=== PATIENT | male | born 1945 | race Caucasian/White ===

== ENCOUNTER 2023-06-21 08:06 | Day surgery (SDC) | payer MEDICARE, BC, SELFPAY ==
[2023-06-07 08:06] VITALS: BMI 28.3
[2023-06-21] VITALS (10 sets, daily range): BP systolic 113–138; BP diastolic 62–73
[2023-06-21 11:46] LABS: ACT-LR - POC 290 Seconds (116-155)
[2023-06-21 12:05] LABS: ACT-LR - POC 276 Seconds (116-155)
[2023-06-21 12:26] LABS: ACT-LR - POC 353 Seconds (116-155)
--- NOTE | 2023-06-21 13:47 | ITS.CL.ABL ---
Mental Health Director - Ablation
Ablation
Procedure Report:
ELECTROPHYSIOLOGIC STUDY AND POSSIBLE ABLATION
DATE: June 21, 2023
Primary Care Provider: Dr Garry Sweet
INDICATION:
Symptomatic Atrial Fibrillation.
Persistent
HISTORY: See H and P.
Symptomatic AF, poorly controlled with attempted medical therapy.
He underwent PVI March 16, 2016. He has maintained sinus rhythm until 2022 when atrial fibrillation was noted to have recurred.
Atrial fibrillation recurrences have been associated with left ventricular systolic dysfunction. Echocardiogram March 17, 2023 finds LVEF of 40 to 45% with global hypokinesis. There is mild to moderate mitral regurgitation and markedly dilated
left atrium, compared to prior echocardiogram from October 2019, LVEF was previously estimated at 64%. He subsequently underwent electrical cardioversion April 05, 2023 restoring sinus rhythm and then recurred with symptomatic atrial fibrillation.
HAS-BLED: 1
Age
CHADSVASc:
CHF, NYHA Class 2, HFmrEF
HTN
Age
PRESENTING RHYTHM: AF
HISTORY: See H and P.
Symptomatic AF, poorly controlled with attempted medical therapy.
ANTICOAGULATION: Eliquis
'TIME-OUT': called and confirmed.
SEDATION/ANESTHESIA: provided via the anesthesia department using general anesthesia.
PROCEDURE:
Ultrasound Guidance performed by wi was utilized for femoral venous Vascular Access b/l.
A decapolar CS catheter was placed within the CS for mapping and pacing.
The intracardiac ultrasound catheter was positioned in the RA for continuous intracardiac ultrasound imaging.
Heparin bolus and infusion to target ACT at 300 -350 seconds was administered. Transseptal puncture was performed. This entailed advancing a sheath with dilator into the superior vena cava and withdrawing both (monitoring intracardiac ultrasound,
fluoroscopy and tip pressure) with the tip oriented toward the atrial septum. The fossa ovalis was engaged (indicated by sudden displacement of the sheath tip as well as tenting of the fossa seen on intracardiac ultrasound). Left atrial access
required a pass with the Brocken[place]rough needle extended. Left atrial catheter position was confirmed by pressure monitoring as well as fluoroscopy. The sheath was advanced over the dilator and positioned in the left atrium. The multipolar mapping
catheter was initially positioned through the transseptal sheath for high density mapping. The ablation catheter was then substituted.
A 3-D map was created using [employer]. A 3-D reconstructed CT image was compared to the 3-D [employer] map to assist in anatomic evaluation, mapping and ablation.
Cardioversion restoring sinus rhythm was performed followed by electroanatomical mapping using [employer] multipolar mapping catheter finds electrically isolated left superior pulmonary vein and right superior pulmonary vein. There is reconnection
at the left inferior pulmonary vein towards the inferior posterior quadrant and reconnection at the sofía between the right superior and right inferior pulmonary veins into the right inferior pulmonary vein. Given recurrence development of
persistent atrial fibrillation after his initial ablation 7 years ago, additional ablation lesion set is planned targeting the left atrial posterior wall. 4 mm tip contact sensing irrigated tip catheter was used to electrically isolate the left
inferior pulmonary vein and the right inferior pulmonary vein. Additional ablation was performed at the posterior wall of the left atrium and at the sofía between the right sided veins to electrically isolate the posterior wall.
An esophageal temperature probe was positioned at the level of the mid LA to delineate the course of the esophagus as well as monitor for any significant temperature increases during RF delivery. The temperature probe was repositioned to best
correlate to the level of each ablation delivery. RF would be repositioned and or discontinued with significant temperature increase (0.2 �C or more) to reduce the risk of esophageal injury. Maximal increase in luminal esophageal temperature
(including latency) at any RF ablation location is < 1 �C and the maximal temperature recorded is 36.4 �C
Prior to energy delivery at the sofía between the right sided pulmonary veins and on the septal aspect of the right sided pulmonary veins high output pacing was performed at every ablation site to assess for proximity to the phrenic nerve. There
was no phrenic nerve capture preceding any RF application.
I.C.E. :
Pre-Ablation Post-Ablation
LVEF: 30-40 % 30-40 %
WMA: global global
Pericardial effusion: none none
Vascade was used for hemostasis at the venous puncture sites.
COMPLICATIONS:
None
SUMMARY:
- Mapping and ablation to isolate the PVs
- Additional AF ablation set after PVI.
- 3-D Electroanatomical Mapping
- Intracardiac Ultrasound
Post ablation, I discussed today's findings and results with the patient's .
RECOMMENDATIONS:
- Observe in monitored bed.
- Maintain oral anticoagulation.
- PPI X 30 days
- Office visit with me in 3 months.
Copy to: Dr Garry Sweet
--- NOTE | 2023-06-21 15:52 | W.PN.UPDATE ---
Update Note
Progress Note Update
77 yo WM s/p PVI (same day). He feels good, no cp, sob, preeti clears, voiding, amb w/o dizziness, b/l groins VASCADE closure, soft. EKG SR 1deg AVB and RBBB, intermittent JR on tele asymptomatic SR restores after a few seconds. He will take his
Eliquis tonight at 7pm at home. He will continue his metoprolol. CPAP compliance was reinforced. Activity restrictions reviewed. He will f/u Dr. Lazaro in 2 mo. He is for d/c home after 330p.
SUMMARY:�
-� Mapping and ablation to isolate the PVs
-� Additional AF ablation set after PVI.�
-� 3-D Electroanatomical Mapping
-� Intracardiac Ultrasound
Post ablation, I� discussed today's findings and results with the patient's .
RECOMMENDATIONS:
- Observe in monitored bed.�
- Maintain oral anticoagulation.
- PPI X 30 days
- Office visit with me in 3 months.
Copy to: Dr Garry Sweet
== END 2023-06-21 16:11 | disposition home or self-care (01) ==
LOC: CATH 08:06
PROVIDERS: ATTENDING PHYSICIAN Internal Medicine Cardiovascular Disease; FAMILY PHYSICIAN Family Medicine
DX: I48.0 Paroxysmal atrial fibrillation (principal); E78.5 Hyperlipidemia, unspecified; I11.0 Hypertensive heart disease with heart failure; I50.20 Unspecified systolic (congestive) heart failure; I43 Cardiomyopathy in diseases classified elsewhere; H40.9 Unspecified glaucoma; N40.1 Benign prostatic hyperplasia with lower urinary tract symptoms; R33.8 Other retention of urine; I34.0 Nonrheumatic mitral (valve) insufficiency; Z79.01 Long term (current) use of anticoagulants; Z87.891 Personal history of nicotine dependence
CPT/HCPCS: C1732; C1894; C1766; C2630; C1892; C1759; 76937; 85347; 93005; 93656; 93657; C1760

== ENCOUNTER → 2023-09-19 07:52 | Day surgery (SDC) | payer MEDICARE, BC, SELFPAY ==
[2023-09-19 09:00] VITALS: BMI 28.8
== END ==
LOC: CATH 07:52
PROVIDERS: ATTENDING PHYSICIAN Internal Medicine Cardiovascular Disease; FAMILY PHYSICIAN Family Medicine; OTHER PHYSICIAN Internal Medicine Cardiovascular Disease
DX: I48.0 Paroxysmal atrial fibrillation (principal); I10 Essential (primary) hypertension; I42.9 Cardiomyopathy, unspecified; I45.10 Unspecified right bundle-branch block; I34.0 Nonrheumatic mitral (valve) insufficiency; G47.33 Obstructive sleep apnea (adult) (pediatric); Z87.891 Personal history of nicotine dependence; Z79.01 Long term (current) use of anticoagulants
CPT/HCPCS: 92960; 93005

== ENCOUNTER → 2024-07-16 09:21 | Outpatient (REF) | payer MEDICARE, BC, SELFPAY | LOC: RAD 09:21 | PROVIDERS: ATTENDING PHYSICIAN Surgery; FAMILY PHYSICIAN Family Medicine | DX: N40.1 Benign prostatic hyperplasia with lower urinary tract symptoms (principal) | CPT/HCPCS: 76770 ==

== ENCOUNTER 2025-02-17 06:28 | Day surgery (SDC) | payer MEDICARE, BC, SELFPAY ==
[2025-02-17] VITALS (11 sets, daily range): BP systolic 107–135; BP diastolic 57–84; BMI 25.7
[2025-02-17] MEDS: NORMOSOL-R/PLASMALYTE-A 1000 IV (09:49)
--- NOTE | 2025-02-17 12:30 | W.IMMPOSTOP ---
Surgical Immed Post Op Note
-
Primary Surgeon: Chikis
Pre-op Diagnosis: BPH w/ SOTO, recurrent urinary retention, massive obstructing intravesical median lobe
Post-op Diagnosis: Same
Procedure Performed: TURP
Anesthesia Type: LMA
Specimen / Cultures: prostate chips/None
Estimated Blood Loss: 3 cc
Drains: 22Fr 3-way catheter (30 cc in balloon)
Complications: None
Operative Findings: Massive intravesical median lobe - resected down to bladder base. Distal prostatic urethral resection down to prostatic capsule. No involvement of bilateral UOs/veru/external urethral sphincter w/n margins of resection.
Excellent hemostasis at conclusion of procedure.
Spouse updated post-op on intraop findings and discharge plan of care (planned 02/18).
[2025-02-17] MEDS: DETROL LA 4 MG PO (13:12)
--- NOTE | 2025-02-17 13:30 | PTCARENOTE ---
Pt received from the PACU via bed.Transport was w/o incident. Pt is AAOx3, HR irreg (known afib), lungs are clear, resp. easy. VSS, Pt is afebrile. Pt with CBI infusing w/o difficulty. Urine is pale pink, no blood clots noted at this time. Pt
instructed on plan of care, along with signs and symptoms to report to nursing regarding his surgery. Pt verbalized understanding of instructions. Call marinelli is within reach.
[2025-02-17] MEDS: FLOMAX 0.4 MG PO (21:49)
[2025-02-17] MEDS: XALATAN OPHTHALMIC SOLUTION 1 DROP BOTH EYES (21:49)
[2025-02-17] MEDS: PROSCAR 5 MG PO (21:49)
[2025-02-18 03:00] VITALS: BP 116/63
[2025-02-18 05:59] VITALS: BMI 25.4
[2025-02-18 07:13] LABS: Hematocrit 33.3 % (39.0-52.0); Hemoglobin 11.3 g/dL (13.0-18.0); Mean Corp Hgb Conc. 33.9 g/dL (33.0-37.0); Mean Corpuscular Volume 98.2 fL (80.0-94.0); Nucleated Red Blood Cells % 0 % (-); Platelet Count 178 10^3/uL (130-400); Red Cell Dist. Width 13.2 % (11.5-14.5)
[2025-02-18 07:34] VITALS: BP 127/96
[2025-02-18 08:01] LABS: Blood Urea Nitrogen 22 mg/dl (9-20); Calcium 9.2 mg/dl (8.4-10.2); Carbon Dioxide 29 mmol/L (22-30); Chloride 103 mmol/L (98-107); Estimated Creatinine Clearance 62 ml/min; Glucose 106 mg/dl (70-99); Potassium 4.1 mmol/L (3.5-5.1); Sodium 136 mmol/L (135-145); eGFR > 60.00
[2025-02-18] MEDS: ZOSYN 50 IV (08:11)
[2025-02-18] MEDS: ZESTRIL 10 MG PO (08:12)
[2025-02-18] MEDS: TOPROL XL 25 MG PO (08:12)
[2025-02-18] MEDS: LIPITOR 20 MG PO (08:12)
[2025-02-18] MEDS: VITAMIN D3 (cholecalciferol) 125 MCG PO (08:12)
[2025-02-18 11:00] VITALS: BP 120/69
--- NOTE | 2025-02-18 11:12 | W.DS.TRANS ---
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
-
Discharge Instructions:
Discharge Diagnosis/Procedures BPH with SOTO s/p TURP
Diet Regular
Activity No strenuous activity
Additional Activity No strenuous lifting (>20 lbs), heavy exercise (
walking OK), or sexual activity x7 days per Dr.
Gabale
Driving Restrictions As prior to admission
Bathing Restrictions None
Blood Work not applicable
Wound Care not applicable
Instructions:
Stand-Alone Forms:
Changes to Home Medications: No
Discharge Medications:
DC Medications w/original date entered in [employer]
apixaban 5 mg tablet (Eliquis) 5 mg PO BID 03/16/16
Held on 02/18/25. Instructions: Resume on 02/20/25. Resume Eliquis in AM on 02/20/25.
latanoprost 0.005 % eye drops 0.005 drp BOTH EYES HS 03/16/16
lisinopril 10 mg tablet 10 mg PO DAILY 03/16/16
metoprolol succinate 25 mg tablet,extended release 24 hr 25 mg PO DAILY 03/16/16
atorvastatin 20 mg tablet 20 mg PO DAILY 04/05/23
finasteride 5 mg tablet 5 mg PO HS 04/05/23
cholecalciferol (vitamin D3) 125 mcg (5,000 unit) tablet (Vitamin D3) 125 mcg PO DAILY 02/13/25
tamsulosin 0.4 mg capsule 0.4 mg PO HS 02/13/25
ciprofloxacin HCl 500 mg tablet 500 mg PO BID Infection 5 days #10 tabs 02/18/25
Home Medication Changes
Pending Results: Yes
Additional Pending Results:
surgical pathology
--- NOTE | 2025-02-18 15:19 | CM ---
CM reviewed medical records. CM met with patient and in room. CM discussed home via in the event of a riley. Patient stated that he feels comfortable with [facility] care and does not need VN.
PLAN: Home no needs.
== END 2025-02-18 17:15 | disposition home or self-care (01) ==
LOC: SDS 06:28
PROVIDERS: ATTENDING PHYSICIAN Surgery
DX: N40.1 Benign prostatic hyperplasia with lower urinary tract symptoms (principal); N32.0 Bladder-neck obstruction; R33.8 Other retention of urine; N41.9 Inflammatory disease of prostate, unspecified
CPT/HCPCS: 52601; 80048; 85025; 88305